=== PATIENT | male | born 1990 | race American Indian/Alaskan Native ===

== ENCOUNTER 2018-08-20 02:11 | Emergency (ER) | payer SELFPAY ==
--- NOTE | 2018-08-20 04:51 | XRay Report ---
FINAL REPORT EXAM: XR FINGER(S) 2+V LT HISTORY: cut finger with glass/ LT 5TH DIGIT COMPARISONS: None. FINDINGS: Three views left hand/5th finger Volar soft tissue swelling in the left 5th finger with overlying bandaging material. No radiodense foreign body, fracture, gross malalignment or joint space abnormality. IMPRESSION: Left 5th finger soft tissue injury without radiodense foreign body, fracture or gross malalignment.
[2018-08-20] MEDS ORDERED: KEFLEX PO ONE (06:34)
[2018-08-20] MEDS ORDERED: BOOSTRIX IM ONE (06:34)
--- NOTE | 2018-08-20 06:38 | Emergency Department Report ---
ED Laceration HPI - HPI Chief Complaint: Wound/Laceration Stated Complaint: CUT FINGER VERY BADLY Time Seen by Provider: 08/20/18 05:42 Severity: moderate Tetanus Status: Not up to Date Laceration Symptoms: Yes Pain (06/24), No Foreign Body Sensation, No Numbness, No Weakness Other History: pt states left pinky laceration versus glass bottle pain 06/24 no numbness tingling or paralysis ED Review of Systems ROS: Stated complaint: CUT FINGER VERY BADLY Other details as noted in HPI Constitutional: denies: chills, fever Eyes: denies: eye pain, eye discharge, vision change ENT: denies: ear pain, throat pain Respiratory: denies: cough, shortness of breath, wheezing Cardiovascular: denies: chest pain, palpitations Endocrine: no symptoms reported Gastrointestinal: denies: abdominal pain, nausea, diarrhea Genitourinary: denies: urgency, dysuria Musculoskeletal: other (left pinky laceration). denies: back pain, joint swelling, arthralgia Skin: denies: rash, lesions Neurological: denies: headache, weakness, paresthesias Psychiatric: denies: anxiety, depression Hematological/Lymphatic: denies: easy bleeding, easy bruising ED Past Medical Hx - Past Medical History Previous Medical History?: Yes Hx Asthma: Yes - Surgical History Past Surgical History?: No - Social History Smoking Status: Current Every Day Smoker Substance Use Type: Alcohol - Medications Home Medications: Home Medications Medication Instructions Recorded Confirmed Last Taken Type Cephalexin [Keflex] 500 mg PO TID #30 capsule 08/20/18 Unknown Rx traMADol [Ultram] 50 mg PO Q6HR PRN #12 tablet 08/20/18 Unknown Rx Laceration Physical Exam - Exam General: Vital signs noted. No distress. Alert and acting appropriately. Laceration Location: Upper Extremity Laceration Exam: Yes Normal Distal CMS, No Foreign Body, No Exposed Tendon, Vessel, or Nerve, No Tendon Injury ED Course Vital Signs 08/20/18 02:44 Temperature 98.5 F Pulse Rate 95 H Respiratory 18 Rate Blood Pressure 109/70 O2 Sat by Pulse 93 Oximetry - Laceration /Wound Repair Left Volar Finger Wound Location: upper extremity Wound's Depth, Shape: into muscle, irregular Wound Explored: clean Irrigated w/ Saline (ccs): 60 Betadine Prep?: Yes Anesthesia: 1% Lidocaine (digital block left pinky ) Volume Anesthetic (ccs): 2 Wound Debrided: minimal Wound Repaired With: sutures Suture Size/Type: 4:0, nylon (12) Layer Closure?: No Sterile Dressing Applied?: Yes Progress: pt with left pinky volar laceration irregular involving muscle tissure rom intact flexion and extension restricted by pain , improved with anesthesia, 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 pt given wound care instructions verbalized agreement and understanding of same. sterile dressing applied ED Medical Decision Making - Radiology Data Radiology results: report reviewed, image reviewed Left 5the Finger soft tissue injury without rediodens foreeign body, fracture or gross malalignment - Medical Decision Making Patient is a 27-year-old -[place] male who cut his left pinky finger broken glass bottle earlier this evening bleeding controlled with direct pressure applied by patient patient denies numbness tingling or paralysis pain described as 8/10 sharp Critical care attestation.: If time is entered above; I have spent that time in minutes in the direct care of this critically ill patient, excluding procedure time. ED Disposition Clinical Impression: Laceration of finger of left hand Qualifiers: Encounter type: initial encounter Finger: little finger Damage to nail status: without damage Foreign body presence: without foreign body Qualified Code(s): S61.217A - Laceration without foreign body of left little finger without damage to nail, initial encounter Disposition: TO HOME OR SELFCARE Is pt being admited?: No Does the pt Need Aspirin: No Condition: Stable Instructions: Laceration (ED), Suture Care (ED) Prescriptions: Cephalexin [Keflex] 500 mg PO TID #30 capsule traMADol [Ultram] 50 mg PO Q6HR PRN #12 tablet PRN Reason: Pain Referrals: ARIAN SESAY MD [Staff Physician] - 3-5 Days Forms: Work/School Release Form(ED) Time of Disposition: 06:53
[2018-08-20 07:03] VITALS: BP 132/72
== END 2018-08-20 07:00 | disposition home or self-care (01) ==
LOC: ED 02:11
DX: S61.217A Laceration without foreign body of left little finger without damage to nail, initial encounter (principal); J45.909 Unspecified asthma, uncomplicated; F17.200 Nicotine dependence, unspecified, uncomplicated; W25.XXXA Contact with sharp glass, initial encounter; Y93.89 Activity, other specified; Y92.89 Other specified places as the place of occurrence of the external cause; Y99.8 Other external cause status
CPT/HCPCS: 90471; 90715; 99283